=== PATIENT | female | born 1955 | race Caucasian/White ===

== ENCOUNTER 2017-06-25 09:21 | Outpatient (CLI) | payer OTHER ==
--- NOTE | 2017-06-25 11:51 | ULT ---
DIAGNOSTIC RIGHT BREAST ULTRASOUND: CLINICAL HISTORY: Mammographic mass, sonographic imaging for further assessment. FINDINGS: There is a small renoform hypoechoic focus with circumscribed margins at the 2 o'clock location of t he right breast. This does correspond to mammographic finding and is most consistent with a small l ymph node, although is too small to definitively characterize. IMPRESSION: BI-RADS 3 - probably benign findings. Short interval followup is recommended. Recommend a 6-month followup diagnostic right mammogram and right breast ultrasound to confirm stability. Findings and recommendations conveyed to the patient at the time of diagnostic exam. POS: [facility]
--- NOTE | 2017-06-25 11:56 | MMO ---
DIAGNOSTIC RIGHT MAMMOGRAM: CLINICAL HISTORY: Followup right breast mass from screening mammogram. FINDINGS: Previously described small mass of the right upper and inner breast does persist and demonstrates a benign morphology, ovoid in shape with circumscribed margins and equal density. The finding is conf irmed with sonographic imaging and most likely is related to a small intramammary lymph node. IMPRESSION: BI-RADS 3 - probably benign findings. Small mass of right breast is most likely related to a small intramammary lymph node, although it is too small to definitively characterize, measuring approximat anabela 4 mm in size. As a conservative measure, a 6-month followup diagnostic right mammogram and right breast ultrasound are recommended to confirm stability. The findings and recommendations were discussed with the patient at the time of the exam. BIRADS 3: Probably Benign Finding. Short-Interval Follow-Up Suggested CODE VINCE POS: [facility]
== END 2017-06-25 09:22 | disposition home or self-care (01) ==
LOC: MAMMO 09:21
PROVIDERS: ATTEND Obstetrics & Gynecology
DX: R92.2 Inconclusive mammogram (principal); N63.0 Unspecified lump in unspecified breast
CPT/HCPCS: G0206-RT

== ENCOUNTER 2018-01-03 13:51 | Outpatient (CLI) | payer OTHER | END 2018-01-03 13:52 | disposition home or self-care (01) | LOC: BICULT 13:51 | PROVIDERS: ATTEND Obstetrics & Gynecology | DX: R92.8 Other abnormal and inconclusive findings on diagnostic imaging of breast (principal) | CPT/HCPCS: G0279 ==

== ENCOUNTER 2018-09-05 13:47 | Outpatient (CLI) | payer OTHER ==
--- NOTE | 2018-09-05 16:21 | BD ---
BONE DENSITOMETRY USING DEXA: Date: 09/05/18 HISTORY: Postmenopausal screening for osteoporosis. FINDINGS: Lumbar Spine: BMD (g/cm2) L1 0.969 T-Score: -0.2 Z-Score: 1.2 L2 1.012 T-Score: -0.1 Z-Score: 1.4 L3 1.076 T-Score: -0.1 Z-Score: 1.6 L4 1.183 T-Score: 1.1 Z-Score: 2.8 L1-L4 1.061 T-Score: -0.1 Z-Score: 1.7 Femoral Neck: 0.730 T-Score: -1.1 Z-Score: 0.3 Total Femur: 0.908 T-Score: -0.3 Z-Score: 0.8 The 10 year fracture risk for a major osteoporotic fracture is 7% and for a hip fracture is 0.4%. IMPRESSION: Osteopenia. POS: [facility]
== END 2018-09-05 13:48 | disposition home or self-care (01) ==
LOC: BICMAMMO 13:47
PROVIDERS: ATTEND Obstetrics & Gynecology
DX: Z13.820 Encounter for screening for osteoporosis (principal); N63.0 Unspecified lump in unspecified breast; M85.859 Other specified disorders of bone density and structure, unspecified thigh
CPT/HCPCS: 77066; 77080; G0279